=== PATIENT | male | born 1975 | race Caucasian/White ===

== ENCOUNTER 2018-08-07 22:12 | Emergency (ER) | payer SELFPAY ==
--- NOTE | 2018-08-07 22:14 | PDOC ---
History of Present Illness - General Chief Complaint: Pain, Acute Stated Complaint: ABD PAIN History Source: Patient Exam Limitations: No Limitations - History of Present Illness Initial Comments: 08/07/18 22:52 This is a 42-year-old male who comes in complaining of right-sided abdominal pain. Patient said he has history significant for Crohn's disease with surgery 2 in the past for her to resection secondary to his Crohn's disease. Patient said symptoms began yesterday and was associated with some nausea and vomiting. Patient denies any fevers or chills. Patient says he is otherwise healthy and takes no other medications. Allergies: None Past Medical History: none Social history: Lives with family. No smoking. No alcohol. No illicit drugs. Surgical history: None General: No fevers or chills, no weakness, no weight loss HEENT: No change in vision. No sore throat,. No ear pain CardioVascular: no chest discomfort. No shortness of breath Respiratory:No cough, or wheezing. Gastrointestinal: + nausea, + vomiting, no diarrhea or constipation, No rectal bleeding, + abdominal pain Genitourinary: No dysuria, hematuria, or frequency Musculoskeletal: No joint or muscle pain or swelling Neurologic: No headache, vertigo, dizziness or loss of consciousness Psychiatric: nor depression Skin: No rashes or easy bruising Endocrine: no increased thirst or abnormal weight change Allergic: no skin or latex allergy All other systems reviewed and normal Exam: General: Well-nourished well-developed individual, no acute distress HEENT: Throat: Normal, tonsils normal, no erythema or exudate Neck: Supple, no meningeal signs, no lymphadenopathy Eyes::Pupils equal reactive and round, extraocular motion intact Chest: Nontender to palpation Cardiac: S1-S2 normal, regular rate and rhythm, no murmurs rubs or gallops Respiratory: Lungs clear to auscultation bilateral Abdomen: Soft, nondistended, normal bowel sounds, there is moderate tenderness on palpation in the right lower quadrant there is no guarding or rebound. There is a midline scar as well as a scar in the right lower quadrant Extremities: Warm, dry, no cyanosis, clubbing, or edema Skin: No rashes Neuro: Alert and oriented x3, CN II - XII intact, nonfocal exam with normal strength, normal sensation, normal reflexes, normal gait, Psych: Normal mood and affect Assessment and plan: This is a 42-year-old male who says he has history of Crohn 's disease with abdominal surgery 2, however patient drove himself to the emergency department and did not bring any sort of identification. When patient was questioned regarding lack of identification he said his is bringing it but then shortly afterwards got up and walked out of the ED. Past History - Past Medical History Allergies/Adverse Reactions: Allergies Allergy/AdvReac Type Severity Reaction Status Date / Time No Known Allergies Allergy Unverified 08/07/18 22:38 Home Medications: Ambulatory Orders NK [No Known Home Medication] 08/07/18 *DC/Admit/Observation/Transfer Diagnosis at time of Disposition: Abdominal pain - Discharge Dispostion Condition at time of disposition: Stable - Referrals - Patient Instructions - Post Discharge Activity
[2018-08-07] MEDS ORDERED: ONDANSETRON 4 MG/2 ML VIAL IVPB ONE (22:41)
[2018-08-07] MEDS ORDERED: KETOROLAC TROMETHAMINE 30 MG/1 ML VIAL IVPUSH ONE (22:41)
[2018-08-07] MEDS ORDERED: SODIUM CHLORIDE 1,000 ML IV ONE (22:41)
[2018-08-07] MEDS ORDERED: morphine CARPU-JECT 4 MG/1 ML DISP.SYRIN IVPUSH ONE (22:43)
[2018-08-07 22:53] VITALS: BP 134/90; PULSE 76; TEMP 98.1; BMI 25.8
== END 2018-08-07 22:54 | disposition home or self-care (01) ==
LOC: FER 22:12
DX: R10.9 Unspecified abdominal pain (principal); K50.90 Crohn's disease, unspecified, without complications
CPT/HCPCS: 99281-25